=== PATIENT | female | born 1995 | race Caucasian/White ===

== ENCOUNTER 2023-05-10 10:06 | Outpatient (CLI) | payer MEDICAID, SELFPAY | END 2023-05-10 10:07 | disposition home or self-care (01) | LOC: NFLDREF 05-11 10:25 | PROVIDERS: Visit Provider Advanced Practice Midwife | DX: Z34.93 Encounter for supervision of normal pregnancy, unspecified, third trimester (principal) | CPT/HCPCS: 86592; 86787; 86803 ==

== ENCOUNTER 2023-06-14 09:55 | Outpatient (CLI) | payer MEDICARE, SELFPAY | END 2023-06-14 09:56 | disposition home or self-care (01) | LOC: NFLDREF 06-16 07:11 | PROVIDERS: Visit Provider Advanced Practice Midwife | DX: Z34.93 Encounter for supervision of normal pregnancy, unspecified, third trimester (principal) | CPT/HCPCS: 82728 ==

== ENCOUNTER 2023-07-05 08:45 | Outpatient (RCR) | payer MEDICARE, SELFPAY ==
--- NOTE | 2023-06-21 10:18 | URNOTE ---
Request received for authorization for Ferric Carboxymaltose?750mg every 7 days X2 (1500mg approved) ([id number]). Prior authorization is approved by [facility] Ref#[id number], Date Range: 06/20/2023 to 09/20/2023.
[2023-06-28 09:48] VITALS: BP 102/62; PULSE 90; RESP 16; TEMP 35.9; O2SAT 99
[2023-06-28] MEDS: FERRIC CARBOXYMALTOSE 750 MG in 0.9 % SODIUM CHLORIDE 250 ml 250 ML 530 MG IVPB (10:15)
[2023-06-28 10:46] VITALS: BP 101/63; PULSE 86; RESP 16; O2SAT 99
[2023-06-28 11:20] VITALS: BP 102/61; PULSE 74; RESP 18; O2SAT 97
[2023-07-05 08:52] VITALS: BP 115/76; PULSE 95; RESP 16; TEMP 35.8; O2SAT 100
[2023-07-05] MEDS: FERRIC CARBOXYMALTOSE 750 MG in 0.9 % SODIUM CHLORIDE 250 ml 250 ML 1060 MG IVPB (09:05)
[2023-07-05 10:07] VITALS: BP 96/55; PULSE 82; RESP 16; TEMP 37; O2SAT 98
== END 2023-12-25 23:59 | disposition home or self-care (01) ==
LOC: CCIC 08:45
PROVIDERS: Visit Provider Internal Medicine Hematology & Oncology
DX: D50.9 Iron deficiency anemia, unspecified (principal)
CPT/HCPCS: 96365; J1439; J7050

== ENCOUNTER 2023-07-11 12:15 | Outpatient (CLI) | payer MEDICARE, SELFPAY | END 2023-07-11 12:16 | disposition home or self-care (01) | LOC: NFLDREF 07-14 07:35 | PROVIDERS: Visit Provider Physician Assistant | DX: O36.8190 Decreased fetal movements, unspecified trimester, not applicable or unspecified (principal); Z3A.36 36 weeks gestation of pregnancy | CPT/HCPCS: 87081; 87653 ==

== ENCOUNTER 2023-08-06 12:07 | Outpatient (CLI) | payer MEDICARE, SELFPAY ==
[2023-08-06 12:24] VITALS: BP 129/63; PULSE 78
[2023-08-06 12:25] VITALS: PULSE 75; O2SAT 98
--- NOTE | 2023-08-06 14:09 | PC.OBNST ---
NST Note NST Note Start: 08/06/23 12:12 Freq: ONCE Status: Active Protocol: Document 08/06/23 14:06 POT (Rec: 08/06/23 14:09 POT [id number]) NST Note 3 Para (# of births) 1 EDC 08/02/23 Gestational Age In Weeks & Days 40 Weeks & 4 Days Patient Presented with Complaint(s) of Decreased movement Reactive Yes Appropriate for Gestational Age Yes RN Jenny Nobles RN Date 08/06/23 Reactive Yes Appropriate for Gestational Age Yes ALEXANDER Ghosh RN Date 08/06/23 OB NST charge Yes Complete NST Note via Write Note Yes The provider's electronic signature indicates the NST is reactive/appropriate for gestational age. *Note to provider: If an addendum is required, open the patient's chart and click on the note under the Nurse/Allied Health tab.
== END 2023-08-06 13:55 | disposition home or self-care (01) ==
LOC: OB OUT 12:07 → OB 12:08
PROVIDERS: Visit Provider Advanced Practice Midwife
DX: O36.8130 Decreased fetal movements, third trimester, not applicable or unspecified (principal); Z3A.40 40 weeks gestation of pregnancy
CPT/HCPCS: 59025; G0463

== ENCOUNTER 2023-08-09 10:50 | Outpatient (CLI) | payer MEDICARE, SELFPAY ==
--- NOTE | 2023-08-09 10:45 | US_ITS ---
Patient: NEMESIO DHILLON Facility:?[facility] Patient ID:?[id number] Site Patient ID:?[id number]. Site :?[id number] Study:?US-OB Pelvis OB BPP-08/09/2023 11:32:38 AM Ordering Physician:MORRIS DEL CID CNM Final Report: INDICATION: HISTORY COMPARISON: None available FINDINGS: Transabdominal examination of the is performed. A single intrauterine gestation is seen in post dates cephalic presentation with regular cardiac activity at 113 beats per minute. The placenta is anterior and to the left and is free of the cervical os. The placental grade is II and the amniotic fluid volume is normal. The DVP is normal at normal at 5.8 cm. The biophysical profile score is 8/8 with no points off. IMPRESSION: 1. Single intrauterine gestation in cephalic presentation with regular cardiac activity. 2. Normal DVP at 5.8 cm. 3. Normal biophysical profile score of 8/8. Dictated by Jamie Zepeda MD @ 08/10/2023 10:54:09 AM Signed by:?Jamie Zepeda MD @08/10/2023 10:54:09 AM (Electronic Signature)
== END 2023-08-09 10:51 | disposition home or self-care (01) ==
LOC: US 10:50
PROVIDERS: Visit Provider Advanced Practice Midwife
DX: O48.0 Post-term pregnancy (principal); Z3A.41 41 weeks gestation of pregnancy
CPT/HCPCS: 76819

== ENCOUNTER 2023-08-10 08:56 | Inpatient (IN) | payer MEDICARE, SELFPAY ==
[2023-08-10] VITALS (15 sets, daily range): BP systolic 100–151; BP diastolic 59–78; PULSE 47–112; RESP 16–17; TEMP 36.7–37.2; O2SAT 96–97
--- NOTE | 2023-08-10 10:07 | P.LDBA_ITS ---
Subjective History of Present Illness Time Seen by Provider: 10:00 Date Seen: 08/10/23 Narrative: Patient is being admitted to Labor and Delivery for labor. She is a 28 year old at 41.1 weeks gestation. Her full history and physical was dictated by Jasmin JACKSON on 07/11/23. Please see this for details. Here in active labor 10 cm and intact. Laboring since last night about 0030 intensified at 0730 today. Mio and August present. Waiting for Hgb result for waterbirth option. Has hx of anemia and received iron infusions. She desires waterbirth if able, planning unmedicated . Specific Issues/Plans August H&P 07/11/23, Michael Transfer from [place] [facility] at 27 0/7 weeks 1. Hx of PPH (questionable partial abruption based on her report of events) no transfusion needed anemic on discharge 9.4 Discussed iron transfusion, prefers to try oral first 2. Hx of 3rd degree tear 3. Placenta previa RESOLVED noted on first US Resolved at 20 week US 4. Hx delayed placenta separation 40 minutes to delivery, was spontaneous 5. Heart murmur no hx noted at transfer visit; asymptomatic 6. Anemia in Hgb 9.6 at 28 weeks, recommended iron supplement Hgb 9.1 at 33 weeks, received iron infusion 7. Varicella non-immune recommend vaccine OB Labs: ? Blood type: B+, antibody screen negative. ? Hgb: 10.9 ? Platelets: 240 ? Rubella: Immune ? Varicella: not in records RPR: non-reactive ? HBsAg: non-reactive ? Hep C: not in records HIV: negative ? UC: negative GC/Chlamydia: not in records? Pap (06/02/21): NIL? Genetic screening: declined IMAGING: ? 1st ultrasound at 15 weeks: complete placenta previa, anterior and left lateral, GA 15.0 weeks? Anatomy scan: Placenta anterior, no previa,, >2cm from internal os. EFW 68%, HC is 6%tile, normal MVP, breech presentation. Additionally abnormal heart rate noted on M-mode, not well capture on cine clip. anomalies may be present but not detected. Recommend full anatomy survey at center/Level 2 ultrasound. Others: 1. Tejeda intrauterine at 22w2d gestation age by 15 week US here for evaluation of anatomy. 2, No anomalies commonly detected by ultrasound or soft markers of aneuploidy we identified in the ultrasound. 3. Growth parameters and estimated weight were consistent with established dates. The head circumference is at the 11%tile, which is within normal limits. 4. The amniotic fluid volume appeared normal. 5. On transabdominal imaging the cervix appears long and closed. 6. There is no evidence of arrhythmia today OB - Problem Based A/P Additional Plan (1) Post-dates : Status: Acute (2) Distress from pain in labor: Status: Acute (3) Hx of maternal laceration, 3rd degree, currently : Status: Acute (4) Hx of retained placenta in prior , currently : Status: Acute (5) Hx of hemorrhage, currently : Status: Acute Plan Assessment:?? at 41.1 weeks gestation?? GBS negative? Patient is coping well with challenges of labor.?? Labor type: Spontaneous, Active labor? Category 1 FHR pattern.? complicated by: Hx of PPH (questionable partial abruption based on her report of events), Hx of 3rd degree tear, Hx delayed placenta separation 40 minutes to delivery, was spontaneous, Heart murmur, Anemia in , received iron infusions in , Varicella non-immune Plan:?? * ?Admit to L & D? * IV access: NA * Monitoring per policy: intermittent * Candidate for analgesia of choice.? Planning unmedicated * Desires waterbirth.? Consent signed and Hep C negative, waiting for Hgb results before entering tub * Expectant management at this time * Patient encouraged to reposition and ambulate to promote physiologic labor and . * Anticipate ? Delivery/Labor/Induction Plan Plan: expectant management OB Exam Physical Exam Vital signs: Temp Pulse Resp BP 98.3 F 112 H 17 117/66 08/10/23 09:38 08/10/23 09:26 08/10/23 09:38 08/10/23 09:26 Narrative: Vitals Reviewed Constitutional:? Alert and oriented x3 HEENT:? Normocephalic, atraumatic Neck:? Supple Lungs:? Clear to auscultation bilaterally Heart:? Regular rate and rhythm, no murmur, rub or gallop Abdomen:? Soft, nontender, and gravid. Vertex by Pierce's, confirmed with cervical exam. Extremities:? No edema or erythema Cervix: 10 cm/100%/+1 station/vertex NST: bpm/125 variability/+accelerations/variable decelerations/strong co ntractions every 5 minutes Detailed Labor and Delivery Exam Patient Gravid: Yes Fetus (Single) Amniotic Membrane Status: intact
[2023-08-10 10:11] LABS: Immature Granulocytes Abs Auto 0.01 K/uL (0.00-0.30); Immature Granulocytes Pct Auto 0.1 %; Lymphocytes Percent Auto 10.6 % (20-44); Mean Corpuscular HGB Conc 33 gm/dL (32-36); Mean Corpuscular Hemoglobin 25 pg (26-34); Mean Corpuscular Volume 77 fL (80-100); Monocytes Percent Auto 3.6 % (0.0-11.0); Neutrophils Percent Auto 85.7 % (42.0-72.0); Platelet Count* 162 K/uL (140-440); Red Blood Count 5.22 m/uL (4.00-5.20); White Blood Count* 7.01 K/uL (4.50-11.00)
[2023-08-10 10:18] LABS: Slide Review Reflex Yes
[2023-08-10 10:19] LABS: Slide Review Acceptable Review (Acceptable)
[2023-08-10] MEDS: OXYTOCIN 10 UNIT/ML INJ IM (10:48)
[2023-08-10] MEDS: miSOPROStoL 800 MCG/4 TABLET PR (10:54)
[2023-08-10] MEDS: lidocaine HCL 2 % JELLY (TOP) STERILE 6 ML TOPICAL (11:04)
[2023-08-10] MEDS: LIDOCAINE 1 % PF 30 ML INJECTION (11:07)
[2023-08-10] MEDS: METHYLERGONOVINE MALEATE 0.2 MG/ML INJ IM (11:44)
--- NOTE | 2023-08-10 11:52 | W.PM.OBVAGDE ---
OB Procedure Vag Delivery Mother Details Mother Details: The patient is a 28 year-old, 3, Para 1, admitted on 08/10/23 at 41.1 Days gestation. : 3 Para: 2 Weeks Gestation: 41.1 Admission Date: 08/10/23 Additional Details Amniotic Membrane Status: SROM Amniotic Membrane Rupture Date: 08/10/23 Amniotic Membrane Rupture Time: 10:22 Amniotic Membrane Fluid Description: Meconium Stained Analgesia/Anesthesia Type: None Waterbirth: Yes Pitcoin: Yes (AMTSL) Intrapartal Events: None Labor Onset: 00:30 Complete: 09:49 Pushin:25 Heart: heart tones during second stage were intermittently monitored and reassuring, FHR in 120's no audible decelerations heard. Delivery Details Delivery Date: 08/10/23 Delivery Time: 10:34 Route of delivery: Gender: Female Viability: Alive; Heart Rate Present Position at Delivery: OA Delivery Details: 28?y.o?at 41.1 weeks.? Chanelle Tejeda arrived in active labor, on admission exam showed she was complete and membranes were intact. She coped well with contractions until she began to feel more pressure with them and felt it was time to push. ? ? She became complete at 0949.??She pushed in side lying and hands and knees positions effectively.? Spontaneous vaginal delivery at 1034 of?a viable? female infant.??Delivered in vertex OA position.??Mother was on hands and knees, head delivered while out of the water and was maintained above the water level and handed to mother once body was delivered . Shoulders delivered easily.? Spontaneous cry noted.??Infant placed on maternal abdomen.??Cord?was clamped and cut after a 5+ minute delay.??Noted to have a 3rd degree tear, Dr. Cortes was called to the bedside to evaluate and repair. ? Shoulder dystocia: no? Nuchal cord: no? Meconium stained?fluid: yes, peds present for delivery? Water : yes? ? ? 8 at 1 minute and 9 at 5 minutes.? Weight is 8lbs 5oz ? Placenta delivered spontaneously and?complete?at 1052 with a?3 vessel?cord.?? Bleeding controlled with fundal massage , Pitocin IM, Cytotec OH and then Methergine was given after repair was completed per Dr. Cortes suggestion. ? Mother and were stable after delivery.? ? Lacerations:? 3rd degree, repaired by Dr Cortes. ? Bleeding?post delivery?was: moderate. ?The fundus was firm to palpation.? Blood loss: 900?mL.? Blood loss measurement type: QBL? ? ? Sponge,?lap?and needles counts are correct.? Mother and were stable after delivery.? 1 Minute Interval Total Score: 8 5 Minute Interval Total Score: 9 Additional Details Shoulder Dystocia: No Placenta Delivery Time: 10:52 Placental Delivery Description: Spontaneous Delivery repair: Vicryl Procedure Done: Global Blood Loss: 900 Laceration: Perineal - 3rd Degree (repair by Dr. Cortes) Blood Loss Measurement Type: QBL Bakri Used: No Sponge/Need Count Correct: Yes Cord Vessel Description: 3 Vessels Event Summary Status: Mother and infant were stable after delivery. Disposition: floor
--- NOTE | 2023-08-10 11:53 | P.OBCN_ITS ---
OB - CN: HPI Date of Consult Time Seen by Provider: 11:53 Date Seen: 08/10/23 Consult date: 08/10/23 Requesting Physician: Kaveh Paul CNM Primary Care Provider: Not a Local Provider Consult Narrative Reason for consult: vaginal repair Narrative: The patient is a 28 year old G3 P 1011 at 41.1 weeks gestation that was admitted to the [facility] on 08/10/23 for active labor @ 10 cm and intact. She had a normal spontaneous vaginal delivery in the tub. I was asked to assess vaginal laceration after her delivery. Third degree laceration Perineum inspected and a 3a laceration was noted. The patient was given a dose of 2g of cefoxitin, rectal exam performed to confirm tear and internal anal sphincter identified and intact with <50% avulsion of the external anal sphincter. Operators? gloves changed and attention was then turned to the anal sphincter. Mehnaz clamps were placed on the disrupted edges, and 0 vicryl used to reapproximate the sphincter in an interrupted fashion with four stitches. Before these were tied down a rectal exam confirmed no retained sutures in the rectum and good sphincter tone with tightening of the sutures. Additional deep stitches were placed proximal to the sphincter to provide for a more substantial perineal body. The remainder of the tear was repaired as a typical 2nd degree laceration with a running 2-0 vicryl stitch. There was no involvement of the anal mucosa. The skin was closed with 2-0 vicryl. Following the repair, she was counseled on the procedure and precautions for return to care. Strong bowel regimen instructions reviewed. A rectal exam was performed at the beginning and end of repair and was without e/o suture through rectum or sphincter injury. Postoperative care recommendations - Bowel regimen: Miralax QD, Docusate BID (if inadequate change Senna BID), Simethicone Q4H PRN. Continue bowel regimen for 6-8 weeks depending level of constipation. Avoid straining, constipation or diarrhea. Avoid siting on toilet for more than 10 mins. - Wound care: recommend rinsing with warm water using jenelle-care bottle and wip ing with unscented wet wipes/clean towel after voids and bowel movements. Pat clean and dry. Do not rub. Avoid using toilet paper that can break off and stick to wound. - Pain: 600mg of Ibuprofen Q6H PRN, 1000 mg of acetaminophen Q6H PRN, oxycodone 5 mg Q6H PRN, Dermoplast spray PRN, perineal ice pack PRN. Sitz baths BID x 2 weeks, then PRN. History History 3 Elective abortions Para 2 Spontaneous abortions 1 Hx # Term Pregnancies Ectopic pregnancies Hx # Pregnancies Multiple births Number of Living Children 1 Past Pregnancies Del. Date GA/Weeks Outcome Route wt Inf Gender Labor Lgth Anesthesia Location Provider Compli Unknown 40 live - full term 7 lb 10 oz Female none [place] [facility] Delivery Date: Last Updated by: Kaveh Paul CNM PPH, 3rd degree tear, placenta delivered at 40 minutes Labs GBS status: negative OB Labs: Lab Assessment Start: 08/10/23 08:56 Freq: ONCE Status: Complete Protocol: PC.OBGBS Activity Type Activity Date Activity User E-sign Co-sign Detail Recorded Client Recorded Date Recorded By Document 08/10/23 11:30 MJSaúl [id number] 08/10/23 11:32 MJA 08/10/23 11:30 Lab Assessment GBS Status negative GBS Additional Criteria None No Treatment Needed OK Are Labs Available Yes Maternal Blood Type B Maternal RH Factor Positive Evaluate Maternal Rubella Immune Status Immune Hepatitis B Surface Antigen Negative Maternal HIV Status Negative Maternal Syphillis (RPR) Status Negative PFSH PFSH Surgical History (Updated 05/03/23 @ 11:39 by Kaveh Paul CNM) [place] teeth extracted ?K08.409 - Partial loss of teeth, unspecified cause, unspecified class (ICD- 10) Family History (Updated 05/03/23 @ 11:41 by Kaveh Paul CNM) Maternal Grandmother CHF (congestive heart failure) Brain aneurysm Kidney malignancy 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, HOUSE PAINTER HELPER) What is your current living situation?: I presently have a place to live Problems where you live: no known problems In the past 12 months, utilities in danger of being shut off: no In past 12 months, lack of transportation kept you from medical appts, meetings, work, or getting things needed for daily living: no In the past 12 mos, have been you worried that your food would run out before you had money to buy more?: never true In the past 12 mos, the food you bought just didn't last and you didn't have money to buy more?: never true Smoking Status: Never smoker How often does anyone, including family, friends and others, physically hurt you : never How often does anyone, including family, friends and others, insult or talk down to you: never How often does anyone, including family, friends and others, threaten you with harm: never How often does anyone, including family, friends and others, scream or curse at you: never Little interest or pleasure in doing things: not at all Feeling down, depressed, or hopeless: not at all Meds Home Medications and Allergies Home Medications Medication Instructions Recorded Confirmed Type vitamin-ferrous fumarate 1 tab PO QDAY 05/03/23 08/09/23 History 28 mg iron-folic acid 800 mcg tablet ( Vitamins with Minerals) Allergies Allergy/AdvReac Type Severity Reaction Status Date / Time No Known Drug Allergies Allergy Verified 08/09/23 11:36 OB - H&P: Exam Physical Exam: Vital signs: Temp Pulse Resp BP 98.3 F 112 H 17 138/78 08/10/23 09:38 08/10/23 11:42 08/10/23 09:38 08/10/23 11:42 OB - Results Labs Labs: Short CBC 08/10/23 Range/Units 10:03 WBC 7.01 (4.50-11.00) K/uL Hgb 13.0 (12.0-16.0) gm/dL Hct 40.0 (33.0-51.0) % Plt Count 162 (140-440) K/uL
[2023-08-10] MEDS: cefOXitin 2 GM in 0.9 % SODIUM CHLORIDE Mini-bag 100 ML IVPB (12:05)
[2023-08-10] MEDS: DOCUSATE SODIUM 100 MG CAPSULE PO (20:43)
[2023-08-10] MEDS: IBUPROFEN 600 MG TABLET PO (22:10)
[2023-08-11 00:25] VITALS: BP 98/60; PULSE 81; RESP 16; TEMP 36.8; O2SAT 96
[2023-08-11 04:25] VITALS: BP 103/69; PULSE 68; RESP 16; O2SAT 96
[2023-08-11 06:36] LABS: Hemoglobin* 11.2 gm/dL (12.0-16.0)
--- NOTE | 2023-08-11 07:50 | PM.OBDSVD1 ---
DS: Providers Provider Date Seen: 08/11/23 Date of admission: 08/10/23 08:56 Primary care physician: Not a Local Provider Admitting Clinician: Kaveh Paul CNM Attending Physician on discharge: Shagufta Bartlett CNM DS: Diagnosis Discharge Diagnosis (1) care and examination immediately after delivery: Status: Acute (2) Lactating mother: Status: Acute (3) Third degree laceration of perineum during delivery, : Status: Acute Exam Narrative: Exam Narrative: GENERAL APPEARANCE:? normal affect, alert, no distress MOOD:? appropriate CHEST:? clear to auscultation HEART:? regular rate and rhythm ABDOMEN:? soft, non-tender the uterine fundus is at Umbilicus, Midline and is appropriate for the stage of recovery. PERINEUM:? mild edema of the perineum, there is a Perineal Laceration,?3rd degree, that is healing well. EXTREMITIES:? normal and no edema Const: Vital Signs, click to edit/add: Vital Signs - 24 hr 08/10/23 09:26 08/10/23 09:38 08/10/23 10:56 Temperature 98.3 F Pulse Rate 112 H 86 Pulse Rate [Left R adial] Respiratory Rate 17 Blood Pressure 117/66 132/68 Blood Pressure [Le ft Arm] [facility] 08/[facility] 10:56 08/10/23 11:13 08/10/23 11:13 Temperature 98.1 F Pulse Rate 47 L Pulse Rate [Left R adial] Respiratory Rate 17 16 Blood Pressure 151/63 H Blood Pressure [Le ft Arm] Pulse [facility]ximetry [facility] 08/10/23 11:27 08/10/23 11:28 08/10/23 11:42 Temperature Pulse Rate 101 H 112 H Pulse Rate [Left R adial] Respiratory Rate 17 Blood Pressure 142/67 H 138/78 Blood Pressure [Le ft Arm] Pulse [facility]ximetry [facility] 08/10/23 11:42 08/10/23 11:56 08/10/23 11:56 Temperature Pulse Rate 93 Pulse Rate [Left R adial] Respiratory Rate 16 16 Blood Pressure 133/74 Blood Pressure [Le ft Arm] Pulse [facility]ximetry [facility] 08/10/23 12:12 08/10/23 12:12 05/16/24 12:26 Temperature Pulse Rate 83 Pulse Rate [Left R adial] Respiratory Rate 16 16 Blood Pressure 130/72 Blood Pressure [Le ft Arm] Pulse Oximetry Oxygen Delivery Me thod 08/10/23 12:27 08/10/23 12:41 08/10/23 12:42 Temperature 98.3 F Pulse Rate 81 80 Pulse Rate [Left R adial] Respiratory Rate 16 Blood Pressure 127/63 127/68 Blood Pressure [Le ft Arm] Pulse Oximetry Oxygen Delivery Me thod 08/10/23 16:54 08/10/23 20:12 08/11/23 00:25 Temperature 98.9 F 98.2 F Pulse Rate Pulse Rate [Left R adial] 72 85 81 Respiratory Rate 16 16 16 Blood Pressure Blood Pressure [Le ft Arm] 100/59 L 107/66 98/60 Pulse Oximetry 96 97 96 Oxygen Delivery Me thod Room Air Room Air Room Air 08/11/23 04:25 Temperature Pulse Rate Pulse Rate [Left R adial] 68 Respiratory Rate 16 Blood Pressure Blood Pressure [Le ft Arm] 103/69 Pulse Oximetry 96 Oxygen Delivery Me thod Room Air OB - DS: Summary Hospital Course Hospital Course: Chanelle is a 28 year old G 3 P 2012 at 41 2/7 weeks gestation that was admitted to the Center on 08/10/23 for spontaneous labor. She had a vaginal delivery complicated by 3rd degree. The patient feels well. ?The pain is well controlled with current medications. ?She has no new complaints. ?She is breast feeding and reports things are going well. the patient has done well.? Vitals have been stable.? She has remained afebrile.? Has a good appetite, is tolerating a general diet. ?She is voiding without difficulty.? She is passing gas and has not had a bowel movement.? She is ambulating and denies any dizziness.? Has small amount of rubra lochia. Problems: none plan: Discharge home with baby. Follow up in 2 weeks and 6 weeks. , may see if needed Hgb 11.2. 3rd degree laceration during delivery. Daily Miralax and BID colace x 6 weeks. Peripartum Data Infant delivery method: Vaginal Laceration description: Perineal - 3rd Degree complications: none [place] Infant Gender: Female Infant Discharge Plan: Home Status at Discharge Functional status at discharge: independent ambulation Overall status at discharge: patient is progressing back to baseline Time Spent with Patient Time attestation: Total time spent providing and/or coordinating discharge services: Discharge Plan Discharge Disposition: Home, Self-Care Date of Admission: 08/10/23 08:56 Primary Care Provider: Provider,Not a Local Condition: Stable Anticipated Discharge Date/Time: 08/11/23 12:00 Discharge Medications: New polyethylene glycol 3350 [Miralax] 17 gram Powder In Packet 17 g PO DAILY Qty: 100 0RF acetaminophen 500 mg Tablet 1,000 mg PO Q6H PRNQty: 0 0RF docusate sodium 100 mg Capsule 100 mg PO BID Qty: 90 1RF ibuprofen 600 mg Tablet 600 mg PO Q6H PRNQty: 60 0RF Continued vit-iron fum-folic ac [ Vitamin with Minerals] 28 mg iron- 800 mcg tablet 1 tab PO QDAY Discharge Orders: Discharge Order (Routine); Ordered 08/11/23 Ordered By: Shagufta Bartlett Patient Education: OB Over the Counter Medication Information, OB Vaginal/Breast Feeding Additional Instructions: Discharge instructions were reviewed with the patient including signs and symptoms of infection and home going medications Nothing vaginally for 6 weeks: no tampons or intercourse Do not drive while taking narcotic pain medication(s) Off Work or School for 6 weeks 2-week visit: discuss feeding concerns, review control options and screen for anxiety/depression. 6-week visit for an annual exam. consultation services are available to all mothers and babies for the first year after delivery.? To make an appointment, please call [phone]. Activity Level: Activity as Tolerated Discharge Diet: Regular Follow Up Appointments: [facility] [Provider Group] Forms: [employer] Info Instructions
[2023-08-11 08:00] VITALS: BP 100/58; RESP 17; TEMP 36.6; O2SAT 97
[2023-08-11] MEDS: polyethylene glycoL 3350 17 GM PACK PO (09:11)
[2023-08-11] MEDS: DOCUSATE SODIUM 100 MG CAPSULE PO (09:11)
[2023-08-11 19:42] LABS: Rapid Plasma Reagin (RPR) Non Reactive (Non Reactive)
== END 2023-08-11 12:20 | disposition home or self-care (01) | DRG 768 ==
LOC: OB OUT 10:50 → OB 10:50
PROVIDERS: Admitting Provider Advanced Practice Midwife; Visit Provider Advanced Practice Midwife
DX: O70.21 Third degree perineal laceration during delivery, IIIa (principal); Z37.0 Single live birth; Z3A.41 41 weeks gestation of pregnancy; O48.0 Post-term pregnancy; O99.013 Anemia complicating pregnancy, third trimester; D64.9 Anemia, unspecified; O99.02 Anemia complicating childbirth; O77.0 Labor and delivery complicated by meconium in amniotic fluid; O75.89 Other specified complications of labor and delivery; R01.1 Cardiac murmur, unspecified
CPT/HCPCS: 36415; 85018; 85025; 86592; 86850; 86900; 86901; A9270; J0694; J2001; J2210; J2590

== ENCOUNTER 2024-10-14 09:40 | Outpatient (CLI) | payer SELFPAY | END 2024-10-14 09:41 | disposition home or self-care (01) | LOC: LKVREF 09:41 | PROVIDERS: Visit Provider Advanced Practice Midwife | DX: O20.9 Hemorrhage in early pregnancy, unspecified (principal); Z3A.01 Less than 8 weeks gestation of pregnancy | CPT/HCPCS: 84702 ==